=== PATIENT | male | born 1945 | race Caucasian/White ===

== ENCOUNTER 2019-02-07 21:44 | Inpatient (IN) | payer MEDICARE ==
[~2019-02-07] VITALS: Ht 182.9 cm; Wt 68.0 kg
[~2019-02-07 21:44] MED LIST: LISI-607 PO; Metoprolol Tartrate PO; UNK B/P MED PO
[2019-02-07] MEDS ORDERED: IV NORMAL SALINE 500 ML BAG IV ONE (22:00)
[2019-02-07] MEDS ORDERED: MORPHINE SULFATE 2 MG/1 ML DISP.SYRIN IV ONE ×2 (22:00→23:00)
--- NOTE | 2019-02-07 22:00 | NUR ---
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
[2019-02-07] MEDS ORDERED: WARF-68 PO (22:04)
--- NOTE | 2019-02-07 22:04 | NUR ---
Pt states he takes warfarin (unknown dose) daily and a BP medication (unknown name and dose).
[2019-02-07] MEDS ORDERED: ONDANSETRON 4 MG/2 ML VIAL ONE ×2 (22:10→22:38)
[2019-02-07] MEDS ORDERED: MORPHINE SULFATE 2 MG/1 ML DISP.SYRIN ONE ×2 (22:13→22:55)
[2019-02-07] MEDS ORDERED: MAG HYDROX/AL HYDROX/SIMETH 30 ML LIQUID UDC ONE (22:13)
[2019-02-07] MEDS ORDERED: DICYCLOMINE HCL LIQ 10 MG/5 ML UDC ONE (22:13)
[2019-02-07 22:14] LABS: BASOPHILS % (AUTO) 0.6 % (0.0-2.0); EOSINOPHILS # (AUTO) 0.2 K/uL (0.0-0.7); EOSINOPHILS % (AUTO) 2.3 % (0.0-7.0); HEMOGLOBIN 12.5 g/dL (12.5-16.3); LYMPHOCYTES # (AUTO) 1.2 K/uL (20.0-40.0); LYMPHOCYTES % (AUTO) 14.8 % (20.5-51.5); MEAN CORPUSCULAR HEMOGLOBIN 31.3 uug (23.8-33.4); MEAN CORPUSCULAR HGB CONC 33 g/dL (32.5-36.3); MEAN CORPUSCULAR VOLUME 95.5 fL (73.0-96.2); MONOCYTES # (AUTO) 0.5 K/uL (2.0-10.0); MONOCYTES % (AUTO) 6.2 % (0.0-11.0); NEUTROPHILS # (AUTO) 6.1 K/uL (1.8-8.9); NEUTROPHILS % (AUTO) 76.1 % (38.5-71.5); PLATELET COUNT (AUTO) 238 K/uL (152-348); RED BLOOD CELL COUNT(AUTO) 3.98 MIL/uL (4.06-5.63)
[2019-02-07] MEDS ORDERED: ONDANSETRON 4 MG/2 ML VIAL IV ONE ×2 (22:15→22:45)
[2019-02-07] MEDS ORDERED: MAG HYDROX/AL HYDROX/SIMETH 30 ML LIQUID UDC PO ONE (22:15)
[2019-02-07] MEDS ORDERED: DICYCLOMINE HCL LIQ 10 MG/5 ML UDC PO ONE (22:15)
--- NOTE | 2019-02-07 22:20 | NUR ---
PT C/O CHEST PAIN THAT RECURS INTERMITTENTLY CURRENTLY DESCRIBED PRESSURE AT EPIGASTRIC AND SUBSTERNAL 11/10 EMESISX1 DUE TO THE PAIN UNABLE TO TOLERATE PO MEDS GIVEN IV MEDS ORDERED
--- NOTE | 2019-02-07 22:21 | NUR ---
NITRO APPLIED TO CHEST SECURED WITH TAPE MONITORED ACCORDINGLY SIDERAILSX2 UP BED AT LOWEST POSITION STILL C/O PAIN 6/10 CHEST RADIATING THROUGH BACK EMESISX1 AGAIN
[2019-02-07 22:22] LABS: CREATININE 1.1 mg/dL (0.6-1.3)
[2019-02-07] MEDS ORDERED: NITROGLYCERIN OINT 1 GM PACKET TP ONE ×2 (22:33→22:45)
[2019-02-07 22:35] LABS: BILIRUBIN,DIRECT 0.2 mg/dL (0.0-0.2); BILIRUBIN,TOTAL 0.7 mg/dL (0.2-1.0); TOTAL PROTEIN, SERUM 7.1 g/dL (6.4-8.2)
[2019-02-07] MEDS ORDERED: FUROSEMIDE 40 MG/4 ML VIAL ONE (22:51)
[2019-02-07] MEDS ORDERED: FUROSEMIDE 40 MG/4 ML VIAL IV ONE (23:00)
--- NOTE | 2019-02-07 23:00 | NUR ---
CALL FOR BED DONE. ACETONE BUTTON PASTER FROM TELE SAID SHE WILL CALL BACK
--- NOTE | 2019-02-07 23:52 | NUR ---
EPIC CALLED BY BRAULIO REYNA
[2019-02-07 23:55] LABS: *BILIRUBIN,URIN NEGATIVE (NEGATIVE); *CLARITY,URINE CLEAR (CLEAR); *COLOR,URINE YELLOW (YELLOW); *KETONES,URINE NEGATIVE (NEGATIVE); *UROBILINOGEN,URINE 0.2 E.U./dl (NORMAL); LEUKOCYTE ESTERASE ,URINE NEGATIVE (NEGATIVE); NITRITE, URINE NEGATIVE (NEGATIVE); UGLUCOSE NEGATIVE (NEGATIVE)
--- NOTE | 2019-02-08 00:02 | NUR ---
BRAULIO ON THE PHONE W/ SUGAR REYNA DX CHF TELE RM 314 ALL BELONGINGS ACCOUNTED FOR ALL BELONGINGS W/ PT
[2019-02-08 00:03] LABS: *BLOOD, URINE TRACE (NEGATIVE)
--- NOTE | 2019-02-08 00:07 | NUR ---
ABDULKADIR RN STILL NOT ON THE FLOOR TO RECEIVE HAND OFF WILL CALL BACK
[2019-02-08 00:08] LABS: BACTERIA,URINE NONE SEEN /HPF (NONE SEEN); RBC,URINE 0-3 /HPF (0-3); SQUAMOUS EPITHELIAL CELL,UR FEW /HPF (NONE SEEN); WBC,URINE 0-3 /HPF (0-3)
[2019-02-08] MEDS ORDERED: NITROGLYCERIN 0.4 MG/TAB BOTTLE SL ONE (00:15)
[2019-02-08] MEDS ORDERED: MAGNESIUM HYDROXIDE 30 ML LIQUID UDC PO PRN (00:15)
[2019-02-08] MEDS ORDERED: TEMAZEPAM 15 MG CAPSULE PO PRN (00:15)
[2019-02-08] MEDS ORDERED: MORPHINE SULFATE 2 MG/1 ML DISP.SYRIN IV PRN (00:15)
[2019-02-08] MEDS ORDERED: ACETAMINOPHEN 325 MG TABLET PO PRN (00:15)
[2019-02-08] MEDS ORDERED: HYDROCODONE/APAP 5-325MG TABLET PO PRN (00:15)
[2019-02-08] MEDS ORDERED: ONDANSETRON 4 MG/2 ML VIAL IV PRN (00:15)
--- NOTE | 2019-02-08 00:16 | NUR ---
PT ASLEEP BUT EASILY ROUSED. KEPT WARM DRY AND COMFORTABLE MONITORED ACCORDINGLY
--- NOTE | 2019-02-08 00:27 | NUR ---
HAND OFF AND SBAR GIVEN TO ABDULKADIR QUIÑONES
--- NOTE | 2019-02-08 00:27 | NUR ---
Pt. admitted to TELE RM 314 , under care of Dr. REYNA Belongs List completed
[2019-02-08 00:55] VITALS: BP 166/110
--- NOTE | 2019-02-08 01:00 | NUR ---
ADMITTED, MALE WITH CHIEF COMPLAINED OF CHEST PAIN, BP 166/110 CALLED [facility] .IMG GIVEN.RESTING COMFORTABLY. ORIENTED TO ROOM, ADVISED TO CALL NURSE FOR HELP ,BED ALARM ON.
[2019-02-08] MEDS ORDERED: CLONIDINE HCL 0.1 MG TABLET PO PRN (01:30)
[2019-02-08 04:00] VITALS: BP 142/107
--- NOTE | 2019-02-08 06:08 | NUR ---
alert,much better sleptafterwards, sinus rhythm bp went down.142/107
[2019-02-08 06:44] LABS: BASOPHILS % (AUTO) 0.4 % (0.0-2.0); EOSINOPHILS % (AUTO) 0.1 % (0.0-7.0); HEMATOCRIT 37.4 % (36.7-47.1); HEMOGLOBIN 12.4 g/dL (12.5-16.3); LYMPHOCYTES # (AUTO) 0.9 K/uL (20.0-40.0); LYMPHOCYTES % (AUTO) 9.4 % (20.5-51.5); MEAN CORPUSCULAR HEMOGLOBIN 32.2 uug (23.8-33.4); MEAN CORPUSCULAR HGB CONC 33 g/dL (32.5-36.3); MONOCYTES # (AUTO) 0.5 K/uL (2.0-10.0); MONOCYTES % (AUTO) 5.4 % (0.0-11.0); NEUTROPHILS # (AUTO) 7.9 K/uL (1.8-8.9); NEUTROPHILS % (AUTO) 84.7 % (38.5-71.5); PLATELET COUNT (AUTO) 233 K/uL (152-348); RED BLOOD CELL COUNT(AUTO) 3.85 MIL/uL (4.06-5.63); WHITE BLOOD COUNT (AUTO) 9.3 K/uL (3.6-10.2)
[2019-02-08 07:10] LABS: BILIRUBIN,TOTAL 1.9 mg/dL (0.2-1.0); MAGNESIUM 1.9 mg/dL (1.8-2.4); PHOSPHOROUS 3.7 mg/dL (2.5-4.9); POTASSIUM 3.7 mmol/L (3.5-5.1); TOTAL PROTEIN, SERUM 7.1 g/dL (6.4-8.2)
[2019-02-08 07:14] LABS: THYROID STIMULATING HORMONE 2.023 mIU/mL (0.358-3.740)
--- NOTE | 2019-02-08 07:30 | NUR ---
Sleeping, appears comfortable, not in distress
[2019-02-08] MEDS ORDERED: WARFARIN SODIUM 2 MG TABLET PO SCH (09:00)
[2019-02-08] MEDS: METOPROLOL TARTRATE 25 MG TABLET PO SCH ×2 (09:00→21:20)
[2019-02-08] MEDS: PANTOPRAZOLE SODIUM 40 MG TABLET.DR PO SCH (09:07)
[2019-02-08] MEDS: LISINOPRIL 5 MG TABLET PO SCH (09:09)
[2019-02-08 11:48] VITALS: BP 112/79
--- NOTE | 2019-02-08 12:30 | NUR ---
Eating more, denies nausea/vomiting. Denies chest pain
[2019-02-08] MEDS ORDERED: MIRT15TA PO (14:13)
[2019-02-08] MEDS ORDERED: TIOT18CA3 IH (14:13)
[2019-02-08 15:19] VITALS: BP 117/66
--- NOTE | 2019-02-08 17:22 | NUR ---
Operations Examiner at bedside, seen and examined patient. Followed up Ultrasound of abdomen order, will be done tomorrow am, to be place on NPO post midnight
[2019-02-08] MEDS: WARFARIN SODIUM 2 MG TABLET PO SCH (17:57)
[2019-02-08] MEDS ORDERED: IOHEXOL 350 100 ML INFUS..BTL ONE (19:02)
[2019-02-08] MEDS ORDERED: SWABABLE VALVE TRANSFER SET EA MC ONE (19:02)
[2019-02-08] MEDS ORDERED: IV NORMAL SALINE 250 ML IV ONE (19:02)
--- NOTE | 2019-02-08 19:30 | NUR ---
PATIENT ALERT ORIENTED, NO SOB NO CHEST PAIN. PATIENT ON TELE MONITOR SINUS RYTHM AT THIS TIME. PATIENT HAS NO COMPLAIN OF PAIN AT THIS TIME. CONT TO MONITOR.
[2019-02-08 20:14] VITALS: BP 111/78
[2019-02-09 00:24] VITALS: BP 114/73
[2019-02-09 04:21] VITALS: BP 131/89
[2019-02-09] MEDS: PANTOPRAZOLE SODIUM 40 MG TABLET.DR PO SCH (06:01)
[2019-02-09 06:24] LABS: BASOPHILS % (AUTO) 0.6 % (0.0-2.0); EOSINOPHILS # (AUTO) 0.2 K/uL (0.0-0.7); HEMATOCRIT 35.6 % (36.7-47.1); HEMOGLOBIN 11.8 g/dL (12.5-16.3); LYMPHOCYTES # (AUTO) 1.1 K/uL (20.0-40.0); LYMPHOCYTES % (AUTO) 13.4 % (20.5-51.5); MEAN CORPUSCULAR HEMOGLOBIN 31.7 uug (23.8-33.4); MEAN CORPUSCULAR HGB CONC 33 g/dL (32.5-36.3); MEAN CORPUSCULAR VOLUME 95.3 fL (73.0-96.2); MONOCYTES # (AUTO) 0.5 K/uL (2.0-10.0); MONOCYTES % (AUTO) 6.1 % (0.0-11.0); NEUTROPHILS # (AUTO) 6.2 K/uL (1.8-8.9); NEUTROPHILS % (AUTO) 77.9 % (38.5-71.5); PLATELET COUNT (AUTO) 212 K/uL (152-348); RED BLOOD CELL COUNT(AUTO) 3.74 MIL/uL (4.06-5.63)
--- NOTE | 2019-02-09 06:24 | NUR ---
PATIENT ALERT ORIENTED, NO SOB NO CHEST PAIN, REMAIN NPO. PATIENT COMPLAIN OF HEADACHES GIVEN TYLENOL 650MG WITH HELP AFTER ONE HOUR. PATIENT TELE MONITOR SINUS RYTHM, CONT TO MONITOR.
--- NOTE | 2019-02-09 07:15 | NUR ---
RECEIVED PATIENT IN BED, AOX4. PATIENT DENIES CHEST PAIN OR SOB AT THIS TIME. RIGHT AC IV INTACT AND FLUSHING WELL . 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 SAFETY AND FALL PREVENTION IN PLACE. BED ALARM ON. CALL LIGHT IN REACH. BED IN LOW AND LOCKED POSITION. ALL NEEDS MET AT THIS TIME. WILL CONTINUE TO MONITOR.
[2019-02-09 07:28] LABS: BILIRUBIN,DIRECT 0.4 mg/dL (0.0-0.2); BILIRUBIN,TOTAL 1.2 mg/dL (0.2-1.0); CREATININE 1.1 mg/dL (0.6-1.3); POTASSIUM 3.7 mmol/L (3.5-5.1); TOTAL PROTEIN, SERUM 6.6 g/dL (6.4-8.2)
--- NOTE | 2019-02-09 08:15 | NUR ---
Notified by charge nurse that patient is being transferred to [facility] due to needing negative pressure room per protocol r/t ordered QuantiFERON-TB gold test ordered by Dr. Lin. Patient advised of need for transfer to [facility].
[2019-02-09] MEDS: LISINOPRIL 5 MG TABLET PO SCH (09:48)
[2019-02-09] MEDS: METOPROLOL TARTRATE 25 MG TABLET PO SCH ×2 (09:49→21:03)
[2019-02-09 11:55] VITALS: BP 114/78
--- NOTE | 2019-02-09 12:00 | NUR ---
Spoke to spray applicator who orddered the stress test and let him know that patient has plans for EGD/colonoscopy on Monday. MD wants stress test done after the EGD/colonoscopy 02/12/19.
[2019-02-09 15:03] LABS: IRON, SERUM 20 ug/dL (50-175)
[2019-02-09 15:31] LABS: FERRITIN 497 ng/mL (26-388)
[2019-02-09] MEDS: WARFARIN SODIUM 2 MG TABLET PO SCH (17:55)
--- NOTE | 2019-02-09 19:31 | NUR ---
PATIENT IN BED, AOX4. PATIENT DENIES CHEST PAIN OR SOB AT THIS TIME. SAFETY AND FALL PREVENTION IN PLACE. BED ALARM ON. CALL LIGHT IN REACH. BED IN LOW AND LOCKED POSITION. ALL NEEDS MET AT THIS TIME. REPORT GIVEN TO SECURITIES CLERK NURSE
--- NOTE | 2019-02-09 20:00 | NUR ---
Patient received into care, laying in bed, resting comfortably. Patient has no complaints of pain or discomfort at this time. IV site in right AC is patent and intact. All safety and fall precaution measures are in place. Call light and personal items are within reach at all times. Will continue to monitor.
[2019-02-09 20:05] VITALS: BP 128/89
[2019-02-09 21:03] VITALS: BP 128/89
--- NOTE | 2019-02-09 21:45 | NUR ---
Called [facility] and gave report to Nurse Brenda for patient.
[2019-02-10] MEDS ORDERED: REGADENOSON 0.4 MG/5 ML PREFILLED SYR IV ONE (08:00)
[2019-02-10 08:08] LABS: *IMMUNOGLOBULIN G, SERUM 1214 mg/dL (700-1600); IMMUNOGLOBULIN A, SERUM 531 mg/dL (61-437); IMMUNOGLOBULIN M, SERUM 45 mg/dL (15-143)
[2019-02-10] MEDS ORDERED: FOLIC ACID 1 MG TABLET PO SCH (09:00)
[2019-02-10] MEDS ORDERED: FLEET ENEMA 133 ML BOTTLE RC ONE (10:45)
[2019-02-10] MEDS ORDERED: GOLYTELY 4000 ML BOTTLE PO ONE (10:45)
[2019-02-10] MEDS ORDERED: MAGNESIUM CITRATE 296 ML BOTTLE PO ONE (10:45)
[2019-02-10 12:09] LABS: HEPATITIS A AB, IgM Negative (Negative); HEPATITIS A AB, TOTAL Negative (Negative); HEPATITIS B SURFACE AB Non Reactive (.); HEPATITIS B SURFACE AG Negative (Negative)
[2019-02-11 16:06] LABS: A/G RATIO 0.8 (0.7-1.7); ALBUMIN 2.7 g/dL (2.9-4.4); ALPHA-1-GLOBULIN 0.4 g/dL (0.0-0.4); ALPHA-2-GLOBULIN 0.9 g/dL (0.4-1.0); BETA GLOBULIN 1.1 g/dL (0.7-1.3); GAMMA GLOBULIN 1.1 g/dL (0.4-1.8); GLOBULIN, TOTAL 3.5 g/dL (2.2-3.9); M-SPIKE Not Observed g/dL (Not Observed)
[2019-02-12 07:07] LABS: AFP, TUMOR MARKER 1.5 ng/mL (0.0-8.3)
[2019-02-12 08:08] LABS: CARBOHYDRATE ANTIGEN, 19-9 79 U/mL (0-35)
== END 2019-02-09 22:14 | disposition short-term general hospital (02) | DRG 206 ==
LOC: ER 21:44 → TELE3 23:55
PROVIDERS: ADMIT Nurse Practitioner Acute Care; ATTEND Nurse Practitioner Acute Care
DX: M94.0 Chondrocostal junction syndrome [Tietze] (principal); J98.11 Atelectasis; D68.59 Other primary thrombophilia; Z79.01 Long term (current) use of anticoagulants; I71.4 Abdominal aortic aneurysm, without rupture; R63.4 Abnormal weight loss; Z68.20 Body mass index [BMI] 20.0-20.9, adult; N28.1 Cyst of kidney, acquired; R74.0 Nonspecific elevation of levels of transaminase and lactic acid dehydrogenase [LDH]; Z87.19 Personal history of other diseases of the digestive system; M54.5 Low back pain; Z80.9 Family history of malignant neoplasm, unspecified; J43.2 Centrilobular emphysema; I70.0 Atherosclerosis of aorta; K80.20 Calculus of gallbladder without cholecystitis without obstruction; N40.0 Benign prostatic hyperplasia without lower urinary tract symptoms; Z79.899 Other long term (current) drug therapy; Z82.49 Family history of ischemic heart disease and other diseases of the circulatory system; K40.90 Unilateral inguinal hernia, without obstruction or gangrene, not specified as recurrent; F12.90 Cannabis use, unspecified, uncomplicated; I48.0 Paroxysmal atrial fibrillation; I10 Essential (primary) hypertension; F17.211 Nicotine dependence, cigarettes, in remission
CPT/HCPCS: 36415; 70030-TC; 71045; 76700; 78445; 82105; 82378; 82747; 82784; 83550; 83735; 84100; 84155; 84165; 84443; 85014; 85025; 85610; 85730; 86301; 86334; 86704; 86706; 86708; 86709; 86803; 87086; 87340; 93005; 93307; A4663; A9537; G0378; J1940; J2270; J2405; J2785; J7040; J7050; Q9967

== ENCOUNTER 2019-04-11 06:15 | Inpatient (IN) | payer MEDICARE, OTHER ==
[~2019-04-11] VITALS: Ht 182.9 cm; Wt 70.4 kg
[~2019-04-11 06:15] MED LIST changes: -LISI-607 PO; +MIRT15TA PO; +TIOT18CA3 IH; -UNK B/P MED PO; +WARF-68 PO
[2019-04-11] MEDS ORDERED: ONDANSETRON 4 MG/2 ML VIAL ONE ×3 (06:30→08:03)
[2019-04-11] MEDS ORDERED: IV NORMAL SALINE 500 ML BAG IV ONE (06:30)
[2019-04-11] MEDS ORDERED: ONDANSETRON 4 MG/2 ML VIAL IV ONE ×3 (06:30→08:00)
[2019-04-11 06:39] LABS: BASOPHILS # (AUTO) 0.1 K/uL (0.0-8.0); BASOPHILS % (AUTO) 1.3 % (0.0-2.0); EOSINOPHILS # (AUTO) 0.4 K/uL (0.0-0.7); EOSINOPHILS % (AUTO) 7.5 % (0.0-7.0); HEMATOCRIT 45.3 % (36.7-47.1); HEMOGLOBIN 15.1 g/dL (12.5-16.3); LYMPHOCYTES # (AUTO) 1.8 K/uL (20.0-40.0); LYMPHOCYTES % (AUTO) 30.8 % (20.5-51.5); MEAN CORPUSCULAR HEMOGLOBIN 33.7 uug (23.8-33.4); MEAN CORPUSCULAR HGB CONC 33 g/dL (32.5-36.3); MEAN CORPUSCULAR VOLUME 101.1 fL (73.0-96.2); MONOCYTES # (AUTO) 0.6 K/uL (2.0-10.0); MONOCYTES % (AUTO) 9.5 % (0.0-11.0); NEUTROPHILS % (AUTO) 50.9 % (38.5-71.5); PLATELET COUNT (AUTO) 142 K/uL (152-348); RED BLOOD CELL COUNT(AUTO) 4.48 MIL/uL (4.06-5.63); WHITE BLOOD COUNT (AUTO) 5.8 K/uL (3.6-10.2)
--- NOTE | 2019-04-11 06:44 | NUR ---
PT BROUGHT IN VIA GURNEY BY [facility]CUE PT ABLE TO STAND AND TRANSFER TO ER [facility] PT AOX3 STATES HE WOKE UP AND FELT DIZZY PT TOOK BP MEDS THIS MORNING: BP 160/90MMHG HR AT 112 +NAUSEA AND VOMITING EMESIS TWICE UPON ARRIVAL MONITORED ACCORDINGLY SIDERAILSX2 UP BED AT LOWEEST POSITION
--- NOTE | 2019-04-11 06:59 | NUR ---
FIRST ZOFRAN PROVIDED MINOR RELIEF, PT VOMITED AGAIN NOTICED, BROWN TO RED EMESIS SECOND ZOFRAN GIVEN
[2019-04-11 07:00] LABS: *BILIRUBIN,URIN NEGATIVE (NEGATIVE); *BLOOD, URINE NEGATIVE (NEGATIVE); *CLARITY,URINE CLEAR (CLEAR); *COLOR,URINE YELLOW (YELLOW); *KETONES,URINE NEGATIVE (NEGATIVE); *UROBILINOGEN,URINE 0.2 E.U./dl (NORMAL); LEUKOCYTE ESTERASE ,URINE NEGATIVE (NEGATIVE); NITRITE, URINE NEGATIVE (NEGATIVE); UGLUCOSE NEGATIVE (NEGATIVE)
[2019-04-11] MEDS ORDERED: FUROSEMIDE 40 MG/4 ML VIAL IV ONE (07:00)
[2019-04-11] MEDS ORDERED: FUROSEMIDE 40 MG/4 ML VIAL ONE (07:01)
--- NOTE | 2019-04-11 07:07 | NUR ---
HAND OFF AND SBAR GIVEN TO DAY SHIFT RN
[2019-04-11 07:13] LABS: BILIRUBIN,DIRECT 0.2 mg/dL (0.0-0.2); BILIRUBIN,TOTAL 0.5 mg/dL (0.2-1.0); TOTAL PROTEIN, SERUM 7.6 g/dL (6.4-8.2)
[2019-04-11] MEDS: POTASSIUM CHLORIDE 20 MEQ TAB.PRT.SR PO ONE ×2 (07:43→08:02)
[2019-04-11] MEDS ORDERED: POTASSIUM CHLORIDE 20 MEQ TAB.PRT.SR ONE (07:43)
[2019-04-11] MEDS ORDERED: POTASSIUM CHLORIDE 50 ML IV SCH (08:00)
[2019-04-11] MEDS ORDERED: POTASSIUM CHLORIDE 50 ML ONE (08:04)
[2019-04-11 09:30] VITALS: BP 104/76
--- NOTE | 2019-04-11 09:35 | NUR ---
REPORT WAS GIVEN TO PLY CUTTER. PT WAS TRANSFERED TO TELEMETRY ROOM #308.
[2019-04-11] MEDS ORDERED: Z GUARD REMEDY PASTE 57 GM TUBE TOP PRN (10:00)
[2019-04-11] MEDS ORDERED: ONDANSETRON 4 MG/2 ML VIAL IV PRN (10:00)
[2019-04-11] MEDS ORDERED: HYDROCODONE/APAP 5-325MG TABLET PO PRN (10:00)
[2019-04-11] MEDS ORDERED: ACETAMINOPHEN 325 MG TABLET PO PRN (10:00)
--- NOTE | 2019-04-11 10:00 | NUR ---
RECEIVED PT FROM ER VIA [facility] DX OF CHF AND HYPOKALEMIA. PT SOMEWHAT LETHARGIC. ALERTY AND ORIENTED X3. FAMILY AT BEDSIDE. PT ON O2 @ 2L/M VIA N/C WITH SATS OF 97%. NO ACUTE DISTRESS NOTED. NO SOB NOTED. PT HAD AN EPISODE OF EMESIS. PT PLACED ON TELEMETRY MONITORING SHOWING SINUS RHYTHM WITH MULTIPLE PACS DR JOYA AWARE. WILL CONTINUE TO MONITOR PATIENT FOR SAFETY AND COMFORT.
[2019-04-11] MEDS: ENOXAPARIN SODIUM 40 MG/0.4 ML DISP.SYRIN SQ SCH (11:20)
[2019-04-11 11:50] VITALS: BP 115/72
[2019-04-11] MEDS: POTASSIUM CHLORIDE 20 MEQ in IV D5/ 0.9% NACL 1,000 ML IV PRN (12:05)
[2019-04-11 15:52] VITALS: BP 130/90
--- NOTE | 2019-04-11 18:00 | NUR ---
PT RESTING COMFORTABLY IN BED. PT ON TELE MONITORING SHOWING SINUS RHYTHM WITH MULTIPLE PACS. DR GREENBERG AWARE. IVF RUNNING. PT DENIES PAIN AT THIS TIME. ADMISSION FINISHED. WILL ENDORSE TO INCOMING SHIFT ACCORDINGLY.
--- NOTE | 2019-04-11 19:20 | NUR ---
Received patient lying in bed. AAOx3. In no acute distress. Denies any pain or SOB. No N/V at this time. IV site on right FA intact and patent. IVF infusing. NSR on tele with PVC's and PAC's at 83/min. Safety measure initiated and call inman within reached.
[2019-04-11 19:46] VITALS: BP 115/88
[2019-04-11] MEDS: MIRTAZAPINE 15 MG TABLET PO SCH (20:35)
[2019-04-12 00:08] VITALS: BP 118/82
[2019-04-12] MEDS: POTASSIUM CHLORIDE 20 MEQ in IV D5/ 0.9% NACL 1,000 ML IV PRN ×2 (02:11→20:15)
[2019-04-12 04:05] VITALS: BP 121/89
--- NOTE | 2019-04-12 06:10 | NUR ---
AAOx3. Denies any pain or SOB. No N/V. IV site on right FA intact and patent. IVF infusing. NSR on tele with PVC's and PAC's at 91/min. Safety measure maintained and call inman within reached.
--- NOTE | 2019-04-12 06:11 | NUR ---
CXR done at bedside by cardiac cath lab radiology technologist.
[2019-04-12 06:32] LABS: BASOPHILS % (AUTO) 0.4 % (0.0-2.0); EOSINOPHILS % (AUTO) 0.4 % (0.0-7.0); HEMATOCRIT 39.5 % (36.7-47.1); HEMOGLOBIN 13.1 g/dL (12.5-16.3); LYMPHOCYTES # (AUTO) 1.4 K/uL (20.0-40.0); LYMPHOCYTES % (AUTO) 19.1 % (20.5-51.5); MEAN CORPUSCULAR HEMOGLOBIN 33.2 uug (23.8-33.4); MEAN CORPUSCULAR HGB CONC 33 g/dL (32.5-36.3); MEAN CORPUSCULAR VOLUME 100.1 fL (73.0-96.2); MONOCYTES # (AUTO) 0.8 K/uL (2.0-10.0); MONOCYTES % (AUTO) 10.3 % (0.0-11.0); NEUTROPHILS # (AUTO) 5.3 K/uL (1.8-8.9); NEUTROPHILS % (AUTO) 69.8 % (38.5-71.5); PLATELET COUNT (AUTO) 125 K/uL (152-348); RED BLOOD CELL COUNT(AUTO) 3.94 MIL/uL (4.06-5.63); WHITE BLOOD COUNT (AUTO) 7.5 K/uL (3.6-10.2)
[2019-04-12 07:00] LABS: CREATININE 0.9 mg/dL (0.6-1.3); MAGNESIUM 2.1 mg/dL (1.8-2.4); POTASSIUM 3.5 mmol/L (3.5-5.1)
--- NOTE | 2019-04-12 07:30 | NUR ---
Sleeping, appears comfortable. O2 at 2L/NC, not in distress. IVF infusing. Bed alarm on
[2019-04-12 08:20] LABS: THYROID STIMULATING HORMONE 0.41 mIU/mL (0.358-3.740)
[2019-04-12] MEDS: PANTOPRAZOLE SODIUM 40 MG VIAL IV SCH (09:27)
[2019-04-12] MEDS: ENOXAPARIN SODIUM 40 MG/0.4 ML DISP.SYRIN SQ SCH (09:28)
[2019-04-12 11:48] VITALS: BP 120/87
--- NOTE | 2019-04-12 12:49 | NUR ---
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 Consider MRI brain for further evaluation. Called to Dr. Raymundo. Neuro Consult ordered. Dr. Arnold informed. Dr. Costello shipping and receiving material handler informed.
[2019-04-12] MEDS: ASPIRIN 81 MG TAB.CHEW PO SCH (13:55)
--- NOTE | 2019-04-12 13:58 | NUR ---
WOUND CARE CONSULT: PT PRESENTS WITH RT ARM HEALING ABRASION, PRESENT ON ADMISSION. PT IS AMBULATORY AND CONTINENT PER NURSING STAFF WITH CURRENT HAROLDO SCORE OF 20. DISCUSSED WOUND CARE WITH NURSING STAFF. WILL SEE PRN. AKINS IN AGREEMENT WITH PLAN OF CARE. Addendum: 04/12/19 at 1359 by YANG REGALADO RN Amended: Links added.
[2019-04-12] MEDS ORDERED: POTASSIUM CHLORIDE 20 MEQ POWDER PACKET GT ONE (14:15)
[2019-04-12 15:12] VITALS: BP 122/86
[2019-04-12] MEDS ORDERED: RIVAROXABAN 10 MG TABLET PO SCH (18:00)
--- NOTE | 2019-04-12 18:35 | NUR ---
Alert, oriented x 4, able to move all extremities on purpose, unsteady with gait, with bilateral equal foreign exchange clerk. Pupils equally reactive to light. with facial symmetry, no slurred speech, but noted intermittent coughing with liquid, aspiration precaution enforced. Noted sensory deficit noted when picking up cup, slow and not able to place directly to the mouth. Stroke education initiated. Started on Aspirin and on Lovenox. SCD on both lower extremities. Tele SR, with multifocal atrial 100
[2019-04-12 19:45] VITALS: BP 122/89
--- NOTE | 2019-04-12 19:45 | NUR ---
Received pt in bed, resting comfortably. Pt AxO x4, pupils reactive. Pt able to speak in complete and clear sentences, no slurred speech. Upper and lower extremities strong. No drift noted. Pt denies pain, dizziness, n/z or SOB. Safety and aspiration precautions maintained. Nursing swallow screen done. SCD on both lower extremities. Call light within reach. Continue plan of care.
[2019-04-12] MEDS: MIRTAZAPINE 15 MG TABLET PO SCH (20:09)
[2019-04-12] MEDS: ATORVASTATIN 40 MG TABLET PO SCH (20:09)
[2019-04-13] VITALS: BP 123/88
[2019-04-13 04:00] VITALS: BP 123/83
--- NOTE | 2019-04-13 06:13 | NUR ---
Patient apneic for 5 minutes. Pupils fixed and dilated. No audible heart tones or breath sounds. No palpable pulses for 1 minute. No corneal reflexes noted. Pt pronounced at 0613. Physician notified. Addendum: 04/13/19 at 0721 by OJE COWAN RN WRONG PATIENT
--- NOTE | 2019-04-13 06:30 | NUR ---
No significant changes throughout the shift. Pt tolerating RA with O2 sats up to 94%. Pt denies SOB, n/v, headache, pain or discomfort. No acute distress noted. No deficits noted. DVT pumps and safety precautions maintained. Continue to monitor closely.
--- NOTE | 2019-04-13 06:35 | NUR ---
Postmortem care provided. All lines removed. NG tube removed. F/C removed. Kept pt clean and dry. Will continue care and endorse to day shift nurse. Addendum: 04/13/19 at 0720 by JOE COWAN RN WRONG PATIENT
[2019-04-13 06:38] LABS: BASOPHILS % (AUTO) 0.7 % (0.0-2.0); EOSINOPHILS # (AUTO) 0.2 K/uL (0.0-0.7); EOSINOPHILS % (AUTO) 2.5 % (0.0-7.0); HEMATOCRIT 37.6 % (36.7-47.1); HEMOGLOBIN 12.7 g/dL (12.5-16.3); LYMPHOCYTES # (AUTO) 1.1 K/uL (20.0-40.0); LYMPHOCYTES % (AUTO) 18.1 % (20.5-51.5); MEAN CORPUSCULAR HEMOGLOBIN 33.6 uug (23.8-33.4); MEAN CORPUSCULAR HGB CONC 34 g/dL (32.5-36.3); MEAN CORPUSCULAR VOLUME 99.6 fL (73.0-96.2); MONOCYTES # (AUTO) 0.8 K/uL (2.0-10.0); MONOCYTES % (AUTO) 12.2 % (0.0-11.0); NEUTROPHILS # (AUTO) 4.2 K/uL (1.8-8.9); NEUTROPHILS % (AUTO) 66.5 % (38.5-71.5); PLATELET COUNT (AUTO) 125 K/uL (152-348); RED BLOOD CELL COUNT(AUTO) 3.77 MIL/uL (4.06-5.63); WHITE BLOOD COUNT (AUTO) 6.3 K/uL (3.6-10.2)
[2019-04-13 07:09] LABS: CREATININE 0.9 mg/dL (0.6-1.3); POTASSIUM 3.3 mmol/L (3.5-5.1)
--- NOTE | 2019-04-13 08:00 | NUR ---
SEEN BY DR MENDEZ FOR NEURO FOLLOW-UP SEE NOTES. ADVISED TO WALK ALL THE TIME WITH ASSIST/PT
[2019-04-13] MEDS: PANTOPRAZOLE SODIUM 40 MG VIAL IV SCH (08:51)
[2019-04-13] MEDS: ASPIRIN 81 MG TAB.CHEW PO SCH (08:51)
[2019-04-13] MEDS: ENOXAPARIN SODIUM 40 MG/0.4 ML DISP.SYRIN SQ SCH (08:52)
[2019-04-13] MEDS ORDERED: POTASSIUM CHLORIDE 20 MEQ POWDER PACKET GT ONE (09:30)
[2019-04-13] MEDS: POTASSIUM CHLORIDE 50 ML IV SCH ×2 (10:02→12:28)
--- NOTE | 2019-04-13 11:02 | NUR ---
PATIENT HEART RATE RANGES FROM 90 UP TO 150/MIN ON MOVEMENT NON-SUSTAINED. DR ARMIJO STOKER INSTALLER IN NO NEW ORDERS EXCEPT REPLACED POTASSIUM. DENIES CHEST PAIN OR SOB. CONTINUE WITH TELE MONITORING
[2019-04-13 11:07] VITALS: BP 108/78
[2019-04-13] MEDS: POTASSIUM CHLORIDE 20 MEQ in IV D5/ 0.9% NACL 1,000 ML IV PRN (14:17)
[2019-04-13 15:06] VITALS: BP 113/79
[2019-04-13] MEDS: RIVAROXABAN 10 MG TABLET PO SCH (18:24)
--- NOTE | 2019-04-13 19:37 | NUR ---
Received patient in bed, A/Ox4. No acute distress noted. No complaints of pain or SOB. Vitals WNL. Patient noted with slight slurred speech, upper extremity with strong linux admin, no weakness or drift noted. Patient is to stay in bed, only up and OOB with PT. IVF running on the left forearm, safety measures initiated. Bed is low and locked, call light within reach. Will continue to monitor
[2019-04-13 19:44] VITALS: BP 119/88
[2019-04-13] MEDS: ATORVASTATIN 40 MG TABLET PO SCH (20:39)
[2019-04-13] MEDS: MIRTAZAPINE 15 MG TABLET PO SCH (20:39)
[2019-04-14] VITALS: BP 118/84
[2019-04-14] MEDS: POTASSIUM CHLORIDE 20 MEQ in IV D5/ 0.9% NACL 1,000 ML IV PRN ×2 (03:20→17:04)
[2019-04-14 04:00] VITALS: BP 122/89
[2019-04-14 05:59] LABS: POTASSIUM 4.1 mmol/L (3.5-5.1)
[2019-04-14] MEDS: PANTOPRAZOLE SODIUM 40 MG TABLET.DR PO SCH (06:19)
--- NOTE | 2019-04-14 07:58 | NUR ---
Received patient restubg in bed alert oriented x4. No acute distress noted. No complaints of pain or SOB. IV in L Forearm 20 gauge intact patent running prescribed fluid. Educated pt. to stay in bed and only up with PT per neuro doctor request. Pt. states he understands. Safety measures in place. call light within reach. Will continue to monitor
[2019-04-14] MEDS: ASPIRIN 81 MG TAB.CHEW PO SCH (08:07)
[2019-04-14 11:05] VITALS: BP 120/85
[2019-04-14] MEDS: METOPROLOL TARTRATE 25 MG TABLET PO SCH ×2 (12:01→21:44)
[2019-04-14 15:16] VITALS: BP 120/85
[2019-04-14] MEDS: RIVAROXABAN 10 MG TABLET PO SCH (17:03)
--- NOTE | 2019-04-14 18:18 | NUR ---
Pt. resting in bed with family at bedside. pt. denies pain discomfort. Pt. has no difference in weakness on Left and Right sides. Strength, aerospace quality engineer, resistance good. Pt. resting comfortably. Pt. took all medication. Pt. seen by Gasoline Truck Crane Operator and Neuro INTERIM CONTROLLER. safety measures in place. call light within reach. will continue to monitor pt.
[2019-04-14 20:33] VITALS: BP 116/83
[2019-04-14] MEDS: MIRTAZAPINE 15 MG TABLET PO SCH (21:44)
[2019-04-14] MEDS: ATORVASTATIN 40 MG TABLET PO SCH (21:44)
[2019-04-15 00:46] VITALS: BP 100/76
[2019-04-15 04:42] VITALS: BP 116/88
[2019-04-15] MEDS: PANTOPRAZOLE SODIUM 40 MG TABLET.DR PO SCH (05:26)
[2019-04-15] MEDS: POTASSIUM CHLORIDE 20 MEQ in IV D5/ 0.9% NACL 1,000 ML IV PRN (07:02)
[2019-04-15] MEDS ORDERED: SWABABLE VALVE TRANSFER SET EA MC ONE (07:29)
[2019-04-15] MEDS ORDERED: IOHEXOL 350 100 ML INFUS..BTL ONE (07:29)
[2019-04-15] MEDS ORDERED: IV NORMAL SALINE 250 ML IV ONE (07:29)
--- NOTE | 2019-04-15 08:00 | NUR ---
Received patient resting in bed alert oriented x4. Pt. does not have any Left versus Right sided weakness. Equal strength. No facial droop. No slurring of words. Pt. is on blood thinner xarelto. No acute distress noted. No complaints of pain or SOB. IV in L Forearm 20 gauge intact patent running prescribed fluid. Educated pt. to stay in bed and only up with PT per neuro doctor request. Pt. states he understands. Safety measures in place. call light within reach. Will continue to monitor pt.
[2019-04-15] MEDS: ASPIRIN 81 MG TAB.CHEW PO SCH (08:46)
[2019-04-15] MEDS: METOPROLOL TARTRATE 25 MG TABLET PO SCH (08:46)
--- NOTE | 2019-04-15 11:21 | NUR ---
Pt. had CTA of brain and CTA of carotids done today. Pt. in stable condition.
[2019-04-15 11:45] VITALS: BP 119/76
--- NOTE | 2019-04-15 14:49 | NUR ---
SW met with this patient today. Patient is a 73 year old male, alert, oriented x 4, was in his assigned bed, receptive to meeting with this SW. Patient was cooperative, speech was clear, behavior and thought process were appropriate. Patient lives in an apartment with his . Patient has 2 sons, Rock and Jose. Patient reported that his son Jose will be moving in with them soon, and his son Rock lives in [place]. Patient reported that his is very supportive. Patient is retired, previously working in transportation services. Patient stated being independent and able to tend his own ADL's prior to current hospitalization. Patient was also driving. Patient is a retired from the [employer]. SW assessed patient's mood, and conducted the PHQ-9--patient depression questionnaire. Patient denied any s/sx of depression, scoring a 0 on the questionnaire. Educational material about strokes provided to the patient. ISHMAEL Nava and PAULA Mark informed of above. No further SS interventions needed at this time.
[2019-04-15 16:04] VITALS: BP 121/81
[2019-04-15] MEDS: RIVAROXABAN 10 MG TABLET PO SCH (17:45)
--- NOTE | 2019-04-15 18:29 | NUR ---
Pt. going to be discharged to [facility] Room 41. [phone]. Report given to Kenyatta QUIÑONES. All discharge papers signed by pt. Stroke packet given to pt. Photos taken and in chart. Belongings list signed. Pt. understands discharge plans. contacted. Awaiting ambulance for transportation
[2019-04-15 20:11] VITALS: BP 105/76
--- NOTE | 2019-04-15 20:49 | NUR ---
patient left the floor, [facility] is transporting to [facility]. Wrist band removed, property was returned to the patient. Vital signs are WNL and stable.
== END 2019-04-15 20:50 | DRG 65 ==
LOC: ER 06:15 → TELE3 08:59
DX: I63.442 Cerebral infarction due to embolism of left cerebellar artery (principal); I50.22 Chronic systolic (congestive) heart failure; D68.59 Other primary thrombophilia; R13.10 Dysphagia, unspecified; R40.2362 Coma scale, best motor response, obeys commands, at arrival to emergency department; R40.2142 Coma scale, eyes open, spontaneous, at arrival to emergency department; R40.2252 Coma scale, best verbal response, oriented, at arrival to emergency department; K80.20 Calculus of gallbladder without cholecystitis without obstruction; R00.1 Bradycardia, unspecified; I48.0 Paroxysmal atrial fibrillation; Z79.01 Long term (current) use of anticoagulants; Z91.14 Patient's other noncompliance with medication regimen; I11.0 Hypertensive heart disease with heart failure; I25.5 Ischemic cardiomyopathy; I71.4 Abdominal aortic aneurysm, without rupture; I70.0 Atherosclerosis of aorta; I71.2 Thoracic aortic aneurysm, without rupture; F12.90 Cannabis use, unspecified, uncomplicated; E87.6 Hypokalemia; Z87.19 Personal history of other diseases of the digestive system; R26.81 Unsteadiness on feet; R42 Dizziness and giddiness; Z86.73 Personal history of transient ischemic attack (TIA), and cerebral infarction without residual deficits
CPT/HCPCS: 36415; 70030-TC; 70450; 70496; 71045; 83605; 83690; 83735; 84100; 84443; 85025; 85651; 85730; 86592; 87040; 87400; 93005; A4663; C9113; G0378; J1650; J1940; J2405; J3480; J7040; J7042; J7050; Q9967